=== PATIENT | female | born 1980 | race Caucasian/White ===

== ENCOUNTER 2016-08-07 00:10 | Emergency (ER) | payer OTHER ==
[~2016-08-07] VITALS: Ht 162.6 cm; Wt 59.9 kg
--- NOTE | 2016-08-07 00:18 | NUR ---
Dr. Bond evaluating patient at triage.
[2016-08-07 00:21] VITALS: BP 94/54
[2016-08-07] MEDS ORDERED: NACL 0.9% 1,000 ML IV SCH (00:29)
--- NOTE | 2016-08-07 00:29 | NUR ---
PT TAKEN TO BED 4
[2016-08-07] MEDS ORDERED: ONDANSETRON 4 MG/2 ML VIAL IVP ONE (00:30)
[2016-08-07] MEDS ORDERED: FAMOTIDINE 20 MG/2 ML VIAL IVP ONE (00:30)
--- NOTE | 2016-08-07 00:34 | NUR ---
PT IS A 36Y F BIB FAMILY TO ED WITH C/O VOMITNG DAILY FOR MONTHS PER PT, 14 WEEKS . PT STATES SHE HAS BEEN HAVING DIFFICULY SEEING, WITH BLURRY VISION X 1 DAY. DENIES D; SKIN IS PINK/WARM/DRY; AAOX4 WITH EVEN AND STEADY GAIT; LUNGS CLEAR BL; HR EVEN AND REGULAR; PT DENIES ANY FEVER, CP, SOB, OR COUGH AT THIS TIME; PATIENT STATES PAIN OF 0/10 AT THIS TIME; VSS; PATIENT POSITIONED FOR COMFORT; HOB ELEVATED; BEDRAILS UP X2; BED DOWN. ER MD MADE AWARE OF PT STATUS.
--- NOTE | 2016-08-07 00:36 | NUR ---
L&D NURSE AT BEDSIDE FOR HEART TONES
[2016-08-07 01:38] VITALS: BP 105/58
== END 2016-08-07 01:38 | disposition home or self-care (01) ==
LOC: MED 00:10
DX: O21.0 Mild hyperemesis gravidarum (principal); Z3A.14 14 weeks gestation of pregnancy
CPT/HCPCS: 36415; 80053; 81001; 81025; 82150; 83690; 84702; 85025; 96361; 96374; 99284; J2405; J3490; J7030

== ENCOUNTER 2016-09-23 06:35 | Observation (INO) | payer OTHER ==
[~2016-09-23] VITALS: Ht 162.6 cm; Wt 62.6 kg
[2016-09-23] MEDS ORDERED: NALBUPHINE 10 MG/ML AMP IVP PRN ×2 (07:30→11:45)
[2016-09-23] MEDS ORDERED: PROMETHAZINE 25 MG/ML VIAL IVP SCH ×2 (07:30→14:00)
[2016-09-23] MEDS ORDERED: NALBUPHINE HYDROCHLORIDE 10 MG/ML VIAL ONE ×2 (07:43→11:44)
[2016-09-23] MEDS ORDERED: PROMETHAZINE 25 MG/ML VIAL ONE (07:43)
[2016-09-23 07:45] VITALS: BP 112/57
[2016-09-23] MEDS: LACTATED RINGERS 1,000 ML IV SCH ×2 (07:57→16:01)
[2016-09-23] MEDS ORDERED: AMPICILLIN 2,000 MG in NACL 0.9% 100 ML IV SCH (10:00)
[2016-09-23] MEDS ORDERED: AMPICILLIN 2,000 MG VIAL ONE ×3 (10:11→18:18)
== END 2016-09-23 20:00 | disposition home or self-care (01) ==
LOC: MLD 06:35
PROVIDERS: ADMIT Obstetrics & Gynecology; ATTEND Obstetrics & Gynecology
DX: O26.892 Other specified pregnancy related conditions, second trimester (principal); M54.5 Low back pain; Z3A.21 21 weeks gestation of pregnancy
CPT/HCPCS: 76770; 76805; 81001; 87086; 96361; 96365; 96375; 96376; G0378; J0290; J2300; J2550; J7120; Q0092